=== PATIENT | female | born 1965 | race Caucasian/White ===

== ENCOUNTER 2019-06-02 12:27 | Outpatient (CLI) | payer OTHER | END 2019-06-02 23:59 | disposition home or self-care (01) | LOC: CARD DIAG 12:27 | PROVIDERS: ATTEND Orthopaedic Surgery | DX: I25.9 Chronic ischemic heart disease, unspecified (principal); I49.9 Cardiac arrhythmia, unspecified | CPT/HCPCS: 93005; 93306 ==